=== PATIENT | male | born 1980 | race Hispanic/Latino ===

== ENCOUNTER 2022-07-27 19:04 | Emergency (ER) | payer SELFPAY ==
[2022-07-27] MEDS ORDERED: Ondansetron ODT 4 MG TAB ONE (19:30)
[2022-07-27] MEDS ORDERED: Oseltamivir 75 MG CAP ONE (20:08)
== END 2022-07-27 20:15 | disposition home or self-care (01) ==
LOC: NAV ERS 19:04
DX: J10.1 Influenza due to other identified influenza virus with other respiratory manifestations (principal)
CPT/HCPCS: 87804; 99283; Q0162